=== PATIENT | female | born 1975 | race Caucasian/White ===

== ENCOUNTER 2019-05-15 13:02 | Emergency (ER) | payer BC ==
[2019-05-15 13:11] VITALS: BP 122/74
[2019-05-15] MEDS ORDERED: Sodium Chloride 0.9% 1,000 ML IV ONE (13:38)
[2019-05-15] MEDS ORDERED: Ondansetron 4 MG/2 ML SDV IVPUSH ONE (13:38)
[2019-05-15] MEDS ORDERED: Sodium Chloride 0.9% 10 ML Syringe FLUSH PRN ×2 (13:38→14:06)
--- NOTE | 2019-05-15 13:42 | EDM.PDOC ---
ED HPI GENERAL MEDICAL PROBLEM - General Chief Complaint: Gastrointestinal Problem Stated Complaint: CANT KEEP FOOD DOWN SINCE GASTRIC SLEEVE SURGERY Time Seen by Provider: 05/15/19 13:25 Source of Information: Reports: Patient History Limitations: Reports: No Limitations - History of Present Illness INITIAL COMMENTS - FREE TEXT/NARRATIVE: Patient is unfortunate 44-year-old morbidly obese female who presents emergency Department today with complaint of epigastric and pain and vomiting. Patient reports that she is status post a gastric sleeve by Dr. Valentin at [facility] in [place] on of last week. Patient reports she was sent home on Wednesday and since that time she's not been able to keep any food or fluid down since. She's been vomiting every time she attempts to eat or drink anything. She reports she's not had any fever she does have epigastric abdominal pain which is worse with deep inspiration or with eating or drinking improves with rest does not alleviate. She reports that she called and talked to the nurses at his office who put her on a different pain medication which she is unable to parts picker thus far Upper Abdomen Pain Score (Numeric/FACES): 6 - Related Data Allergies Allergy/AdvReac Type Severity Reaction Status Date / Time Sulfa (Sulfonamide Allergy Itching Verified 05/15/19 13:11 Antibiotics) Home Meds: Home Meds Acetaminophen with Codeine [Tylenol with Codeine #3 Tablet] 1 each PO Q4HR 05/15 [History] Cyanocobalamin (Vitamin B-12) [B-12] 1,000 mcg PO DAILY 05/15/19 [History] Dextroamphetamine/Amphetamine [Adderall] 30 mg PO BID 05/15/19 [History] Hydrocodone/Acetaminophen [Hydrocodon-Acetaminoph 7.5-325] 15 ml PO Q6HR [History] Multivitamin [Daily Multiple Vitamin] 1 each PO DAILY 05/15/19 [History] Ondansetron [Zofran ODT] 4 mg PO Q6H PRN 05/15/19 [History] Pantoprazole [ProTONIX] 40 mg PO DAILY 05/15/19 [History] Promethazine [Phenergan] 0.5 ml TOP ASDIRECTED 05/15/19 [History] SUMAtriptan [Imitrex] 100 mg PO Q2HR 05/15/19 [History] cephALEXin [Cephalexin] 10 ml PO QID 7 Days #280 ml 05/15/19 [Rx] Past Medical History HEENT History: Reports: Impaired Vision Cardiovascular History: Reports: None Respiratory History: Reports: None Genitourinary History: Reports: UTI, Recurrent BLADE BALANCER History: Reports: None Musculoskeletal History: Reports: None Neurological History: Reports: Headaches, Chronic Psychiatric History: Reports: None Endocrine/Metabolic History: Reports: Obesity/BMI 30+ Hematologic History: Reports: None Immunologic History: Reports: None Oncologic (Cancer) History: Reports: None Dermatologic History: Reports: Other (See Below) Other Dermatologic History: Cyst in Right Knee - Infectious Disease History Infectious Disease History: Reports: None - Past Surgical History GI Surgical History: Reports: Other (See Below) Other GI Surgeries/Procedures: Gastric Sleeve Surgery done on 05/11/19. Social & Family History - Tobacco Use Smoking Status *Q: Never Smoker - Caffeine Use Caffeine Use: Reports: None - Recreational Drug Use Recreational Drug Use: No ED ROS GENERAL - Review of Systems Review Of Systems: See Below Constitutional: Denies: Fever, Chills GI/Abdominal: Reports: Abdominal Pain, Nausea, Vomiting. Denies: Diarrhea, Decreased Appetite, Flatus, Hematemesis, Hematochezia ED EXAM, GI/ABD - Physical Exam Exam: See Below Exam Limited By: No Limitations General Appearance: Alert, WD/WN, Mild Distress, Obese Nose: Normal Inspection, Normal Mucosa, No Blood Throat/Mouth: Normal Inspection, Normal Lips, Normal Teeth, Normal Gums, Normal Oropharynx, Normal Voice, No Airway Compromise Neck: Normal Inspection, Supple, Non-Tender, Full Range of Motion Respiratory/Chest: No Respiratory Distress, Lungs Clear, Normal Breath Sounds, No Accessory Muscle Use, Chest Non-Tender Cardiovascular: Normal Peripheral Pulses, Regular Rate, Rhythm, No Edema, No Gallop, No JVD, No Murmur, No Rub GI/Abdominal Exam: Normal Bowel Sounds, Soft, Tender (Mild epigastric tenderness ), Other (Surgical incisions with good adhesions well approximated no dehiscence no erythema at the site) Extremities: Normal Inspection, Normal Range of Motion, Non-Tender, Normal Capillary Refill, No Pedal Edema Neurological: Alert Skin Exam: Warm, Dry, No Rash Course - Vital Signs Last Recorded V/S: Last Vital Signs Temp 97.5 F 05/15/19 13:07 Pulse 70 05/15/19 13:07 Resp 16 05/15/19 13:07 BP 122/74 05/15/19 13:07 Pulse Ox 94 L 05/15/19 13:07 - Orders/Labs/Meds Orders: Active Orders 24 hr Category Date Time Status CULTURE URINE [RM] Stat Lab 05/15/19 16:20 Received HYDROmorphone [Dilaudid] Med 05/15/19 17:11 Once 1 mg IVPUSH ONETIME ONE Sodium Chloride 0.9% [Saline Flush] Med 05/15/19 13:38 Active 10 ml FLUSH ASDIRECTED PRN Sodium Chloride 0.9% [Saline Flush] Med 05/15/19 14:06 Active 10 ml FLUSH ONETIME PRN cefTRIAXone [Rocephin] 1 gm Med 05/15/19 17:11 Ordered Sodium Chloride 0.9% [Normal Saline] 100 ml IV ONETIME Saline Lock Insert [OM.PC] Stat Oth 05/15/19 13:38 Ordered Medication Orders Ceftriaxone Sodium 1 gm/ (Sodium Chloride) 100 mls @ 200 mls/hr IV ONETIME ONE Stop: 05/15/19 17:40 Sodium Chloride (Saline Flush) 10 ml FLUSH ASDIRECTED PRN PRN Reason: Keep Vein Open Last Admin: 05/15/19 14:06 Dose: 10 ml Sodium Chloride (Saline Flush) 10 ml FLUSH ONETIME PRN PRN Reason: IV FLUSH Last Admin: 05/15/19 15:43 Dose: 10 ml Labs: Laboratory Tests 05/15/19 05/15/19 05/15/19 Range/Units 14:05 14:05 14:05 WBC 8.26 (3.98-10.04) K/mm3 RBC 4.45 (3.98-5.22) M/mm3 Hgb 11.1 L (11.2-15.7) gm/dl Hct 35.3 (34.1-44.9) % MCV 79.3 L (79.4-94.8) fl MCH 24.9 L (25.6-32.2) pg MCHC 31.4 L (32.2-35.5) g/dl RDW Std Deviation 42.1 (36.4-46.3) fL Plt Count 325 (182-369) K/mm3 MPV 10.1 (9.4-12.3) fl Neut % (Auto) 68.5 (34.0-71.1) % Lymph % (Auto) 16.8 L (19.3-51.7) % [place] % (Auto) 8.0 (4.7-12.5) % Eos % (Auto) 6.3 H (0.7-5.8) Baso % (Auto) 0.2 (0.1-1.2) % Neut # (Auto) 5.65 (1.56-6.13) K/mm3 Lymph # (Auto) 1.39 (1.18-3.74) K/mm3 [place] # (Auto) 0.66 H (0.24-0.36) K/mm3 Eos # (Auto) 0.52 H (0.04-0.36) K/mm3 Baso # (Auto) 0.02 (0.01-0.08) K/mm3 Sodium 141 (136-145) mEq/L Potassium 4.0 (3.5-5.1) mEq/L Chloride 103 (98-107) mEq/L Carbon Dioxide 27 (21-32) mEq/L Anion Gap 15.0 (5-15) BUN 11 (7-18) mg/dL Creatinine 0.8 (0.55-1.02) mg/dL Est Cr Clr Drug Dosing 88.18 mL/min Estimated GFR (MDRD) > 60 (>60) mL/min BUN/Creatinine Ratio 13.8 L (14-18) Glucose 105 (74-106) mg/dL Calcium 8.8 (8.5-10.1) mg/dL Total Bilirubin 0.5 (0.2-1.0) mg/dL AST 30 (15-37) U/L ALT 51 (14-59) U/L Alkaline Phosphatase 106 (46-116) U/L Total Protein 7.9 (6.4-8.2) g/dl Albumin 3.5 (3.4-5.0) g/dl Globulin 4.4 gm/dL Albumin/Globulin Ratio 0.8 L (1-2) Lipase 155 (73-393) U/L HCG, Qual Negative (NEGATIVE) Urine Color (Yellow) Urine Appearance (Clear) Urine pH (5.0-8.0) Ur Specific [place] (1.005-1.030) Urine Protein (Negative) Urine Glucose (UA) (Negative) Urine Ketones (Negative) Urine Occult Blood (Negative) Urine Nitrite (Negative) Urine Bilirubin (Negative) Urine Urobilinogen (0.2-1.0) Ur Leukocyte Esterase (Negative) Urine RBC (0-5) /hpf Urine WBC (0-5) /hpf Ur Squamous Epith Cells (0-5) /hpf Urine Bacteria (FEW) /hpf Urine Mucus (FEW) /hpf 05/15/19 Range/Units 16:20 WBC (3.98-10.04) K/mm3 RBC (3.98-5.22) M/mm3 Hgb (11.2-15.7) gm/dl Hct (34.1-44.9) % MCV (79.4-94.8) fl MCH (25.6-32.2) pg MCHC (32.2-35.5) g/dl RDW Std Deviation (36.4-46.3) fL Plt Count (182-369) K/mm3 MPV (9.4-12.3) fl Neut % (Auto) (34.0-71.1) % Lymph % (Auto) (19.3-51.7) % [place] % (Auto) (4.7-12.5) % Eos % (Auto) (0.7-5.8) Baso % (Auto) (0.1-1.2) % Neut # (Auto) (1.56-6.13) K/mm3 Lymph # (Auto) (1.18-3.74) K/mm3 [place] # (Auto) (0.24-0.36) K/mm3 Eos # (Auto) (0.04-0.36) K/mm3 Baso # (Auto) (0.01-0.08) K/mm3 Sodium (136-145) mEq/L Potassium (3.5-5.1) mEq/L Chloride (98-107) mEq/L Carbon Dioxide (21-32) mEq/L Anion Gap (5-15) BUN (7-18) mg/dL Creatinine (0.55-1.02) mg/dL Est Cr Clr Drug Dosing mL/min Estimated GFR (MDRD) (>60) mL/min BUN/Creatinine Ratio (14-18) Glucose (74-106) mg/dL Calcium (8.5-10.1) mg/dL Total Bilirubin (0.2-1.0) mg/dL AST (15-37) U/L ALT (14-59) U/L Alkaline Phosphatase (46-116) U/L Total Protein (6.4-8.2) g/dl Albumin (3.4-5.0) g/dl Globulin gm/dL Albumin/Globulin Ratio (1-2) Lipase (73-393) U/L HCG, Qual (NEGATIVE) Urine Color Light yellow (Yellow) Urine Appearance Cloudy H (Clear) Urine pH 7.0 (5.0-8.0) Ur Specific [place] 1.020 (1.005-1.030) Urine Protein 1+ H (Negative) Urine Glucose (UA) Negative (Negative) Urine Ketones 2+ H (Negative) Urine Occult Blood 1+ H (Negative) Urine Nitrite Negative (Negative) Urine Bilirubin Negative (Negative) Urine Urobilinogen 1.0 (0.2-1.0) Ur Leukocyte Esterase 3+ H (Negative) Urine RBC 5-10 H (0-5) /hpf Urine WBC >100 H (0-5) /hpf Ur Squamous Epith Cells 30-40 H (0-5) /hpf Urine Bacteria Moderate H (FEW) /hpf Urine Mucus Not seen (FEW) /hpf Meds: Medications Generic Name Dose Route Start Last Admin Trade Name Freq PRN Reason Stop Dose Admin Ceftriaxone Sodium 1 gm/ 100 mls @ 200 mls/hr 05/15/19 17:11 Sodium Chloride IV 05/15/19 17:40 ONETIME ONE Sodium Chloride 10 ml 05/15/19 13:38 05/15/19 14:06 Saline Flush FLUSH 10 ml ASDIRECTED PRN Administration Keep Vein Open Sodium Chloride 10 ml 05/15/19 14:06 05/15/19 15:43 Saline Flush FLUSH 10 ml ONETIME PRN Administration IV FLUSH Discontinued Medications Generic Name Dose Route Start Last Admin Trade Name Freq PRN Reason Stop Dose Admin Diatrizoate Meglum/Diatrizoate Sod 120 ml 05/15/19 14:06 05/15/19 15:42 Gastrografin 37% PO 05/15/19 14:07 120 ml ONETIME ONE Administration Sodium Chloride 1,000 mls @ 1,000 mls/hr 05/15/19 13:38 05/15/19 14:05 Normal Saline IV 05/15/19 14:37 1,000 mls/hr ONETIME ONE Administration Iopamidol 100 ml 05/15/19 14:06 05/15/19 15:42 Isovue-300 (61%) IVPUSH 05/15/19 14:07 100 ml ONETIME ONE Administration Ondansetron HCl 4 mg 05/15/19 13:38 05/15/19 14:05 Zofran IVPUSH 05/15/19 13:39 4 mg ONETIME ONE Administration - Re-Assessments/Exams Free Text/Narrative Re-Assessment/Exam: 05/15/19 16:28 CT abdomen and pelvis: Impression: #1 prior stomach surgery. Air within portions abdominal wall compatible with recent surgery. Inflammatory change around the stomach compatible recent surgery. #2 fluid which is most likely reactive within the pelvis. 3 Other findings believed to be incidental. Nothing acute is appreciated." Departure - Departure Time of Disposition: 17:12 Disposition: Home, Self-Care 01 Clinical Impression: UTI, Urinary tract infectious disease - Discharge Information Prescriptions: cephALEXin [Cephalexin] 10 ml PO QID 7 Days #280 ml Instructions: Urinary Tract Infection, Adult, [id number] Referrals: Priscila Casiano, [employer] QUAL[employer] TECHNICIAN [Primary Care Provider] - Forms: ED Department Discharge Sepsis Event Note - Evaluation Sepsis Screening Result: No Definite Risk - Focused Exam Vital Signs: Vital Signs Temp Pulse Resp BP Pulse Ox 05/15/19 13:07 97.5 F 70 16 122/74 94 L Date Exam was Performed: 05/15/19 Time Exam was Performed: 17:12 - My Orders Last 24 Hours: My Active Orders 05/15/19 13:38 Sodium Chloride 0.9% [Saline Flush] 10 ml FLUSH ASDIRECTED PRN Saline Lock Insert [OM.PC] Stat 05/15/19 14:06 Sodium Chloride 0.9% [Saline Flush] 10 ml FLUSH ONETIME PRN 05/15/19 16:20 CULTURE URINE [RM] Stat 05/15/19 17:11 HYDROmorphone [Dilaudid] 1 mg IVPUSH ONETIME ONE cefTRIAXone [Rocephin] 1 gm Sodium Chloride 0.9% [Normal Saline] 100 ml IV ONETIME - Assessment/Plan Last 24 Hours: My Active Orders 05/15/19 13:38 Sodium Chloride 0.9% [Saline Flush] 10 ml FLUSH ASDIRECTED PRN Saline Lock Insert [OM.PC] Stat 05/15/19 14:06 Sodium Chloride 0.9% [Saline Flush] 10 ml FLUSH ONETIME PRN 05/15/19 16:20 CULTURE URINE [RM] Stat 05/15/19 17:11 HYDROmorphone [Dilaudid] 1 mg IVPUSH ONETIME ONE cefTRIAXone [Rocephin] 1 gm Sodium Chloride 0.9% [Normal Saline] 100 ml IV ONETIME
[2019-05-15] MEDS ORDERED: Diatrizoate Meglumine/Diatrizoate Sodium 37% 120 ML Bottle PO ONE (14:06)
[2019-05-15] MEDS ORDERED: Iopamidol 612 MG/ML 100 ML Bottle IVPUSH ONE (14:06)
--- NOTE | 2019-05-15 16:17 | CT ---
CT abdomen and pelvis Technique: Multiple axial sections were obtained from above the dome of the diaphragm inferiorly through the pubic symphysis. Intravenous contrast was utilized. There is a small amount of contrast seen within the colon. No small bowel contrast is seen. Findings: Atelectasis is seen within the left lung base. Liver contains no focal abnormality. Small amount of fat is seen next to the ligamentum teres fissure which is a normal variant. Spleen appears within normal limits. Adrenal glands show no nodule. Pancreas is within normal limits. Surgical clips seen from prior cholecystectomy. Prior gastric surgery is noted. Inflammatory type change is seen around portions of the stomach most likely due to change from recent surgery. Air is noted within the subcutaneous fat most likely relating to prior surgery. Appendix is seen and is normal in size. No other mesenteric abnormalities are seen. Small amount of simple fluid is seen within the pelvis most likely reactive. Mild diverticulosis is seen within the descending and sigmoid colon without inflammatory change of diverticulitis. Aorta shows no aneurysm. No retroperitoneal adenopathy is seen. Kidneys show symmetric contrast enhancement. Small cysts are noted within both kidneys. No ureteral dilatation is seen. Bone window settings were reviewed which appear within normal limits for the patient's age. Impression: 1. Prior stomach surgery. Air within portions of the abdominal wall compatible with recent surgery. Inflammatory change around the stomach compatible with recent surgery. 2. Fluid which is most likely reactive within the pelvis. 3. Other findings believed to be incidental. Nothing acute is appreciated. Diagnostic code #2 This report was dictated in [place] Standard Time
[2019-05-15] MEDS ORDERED: cefTRIAXone 1 GM in Sodium Chloride 0.9% 100 ML IV ONE (17:11)
[2019-05-15] MEDS ORDERED: HYDROmorphone 1 MG/ML Syringe IVPUSH ONE (17:11)
[2019-05-15] MEDS ORDERED: Promethazine 25 MG in Sodium Chloride 0.9% 50 ML IV ONE (17:42)
[2019-05-15] MEDS ORDERED: Promethazine 25 MG/ML SDV IM ONE (17:52)
[2019-05-15 18:46] VITALS: PULSE 83
== END 2019-05-15 18:35 | disposition home or self-care (01) ==
LOC: JD.ED 13:02
DX: N39.0 Urinary tract infection, site not specified (principal); Z88.2 Allergy status to sulfonamides
CPT/HCPCS: 36415; 74177; 80053; 81001; 83690; 84703; 85025; 87086; 87088; 96361; 96365; 96372; 96375; 99284; J0696; J1170; J2405; J2550; J7030; J7050; Q9963; Q9967; 99283

== ENCOUNTER 2021-10-31 21:39 | Emergency (ER) | payer BC, MEDICAID ==
[2021-10-31 22:54] VITALS: BP 123/82; PULSE 76
[2021-10-31 23:38] LABS: ESTIMATED GFR > 60 mL/min (>60)
[2021-10-31] MEDS ORDERED: Apixaban 5 MG Tab PO ONE (23:59)
== END 2021-11-01 00:38 | disposition home or self-care (01) ==
LOC: JD.ED 21:39
DX: I82.512 Chronic embolism and thrombosis of left femoral vein (principal); E66.9 Obesity, unspecified; Z79.01 Long term (current) use of anticoagulants; Z88.2 Allergy status to sulfonamides; Z68.41 Body mass index [BMI] 40.0-44.9, adult
CPT/HCPCS: 36415; 80053; 85025; 85610; 93971; 99284; A9270

== ENCOUNTER 2022-05-08 12:29 | Emergency (ER) | payer MEDICAID ==
[2022-05-08 13:00] VITALS: BP 109/79; PULSE 112
[2022-05-08] MEDS ORDERED: Albuterol/Ipratropium 3.0-0.5 MG/3 ML Neb Soln NEB PRN (14:30)
[2022-05-08 14:53] LABS: CORONAVIRUS COVID-19 NAA NEGATIVE (NEGATIVE)
== END 2022-05-08 16:45 | disposition home or self-care (01) ==
LOC: JD.ED 12:29
DX: J10.1 Influenza due to other identified influenza virus with other respiratory manifestations (principal); E66.9 Obesity, unspecified; Z68.41 Body mass index [BMI] 40.0-44.9, adult; Z88.2 Allergy status to sulfonamides; Z79.899 Other long term (current) drug therapy; Z20.822 Contact with and (suspected) exposure to COVID-19
CPT/HCPCS: 0240U; 71045; 94640; 99284; J7620-GY

== ENCOUNTER 2022-05-26 22:41 | Emergency (ER) | payer MEDICAID ==
[2022-05-26] MEDS ORDERED: HYDROmorphone 1 MG/ML Syringe IM ONE (23:16)
[2022-05-27] MEDS ORDERED: Sodium Chloride 0.9% 10 ML Syringe FLUSH PRN (00:06)
[2022-05-27] MEDS ORDERED: Heparin Sodium 5,000 Units/ML Vial IVPUSH ONE (00:06)
[2022-05-27] MEDS: Heparin Sodium/D5W 25,000 UNITS/500 ML BAG IV SCH ×2 (00:27→12:57)
[2022-05-27] MEDS ORDERED: Ondansetron 4 MG/2 ML SDV IVPUSH PRN (00:35)
[2022-05-27 01:18] LABS: CORONAVIRUS COVID-19 NAA NEGATIVE (NEGATIVE)
[2022-05-27] MEDS: fentaNYL 100 MCG/2 ML SDV IVPUSH PRN ×2 (03:42→11:30)
[2022-05-27] MEDS: HYDROmorphone 0.5 MG/0.5 ML Syringe IVPUSH PRN ×2 (07:52→12:46)
[2022-05-27] MEDS ORDERED: Metoclopramide 10 MG/2 ML SDV IVPUSH ONE (08:00)
[2022-05-27] MEDS ORDERED: Ondansetron 4 MG/2 ML SDV IVPUSH ONE (11:28)
[2022-05-27 18:20] VITALS: BP 106/79; PULSE 84
== END 2022-05-27 12:45 ==
LOC: JD.ED 22:41
DX: I82.402 Acute embolism and thrombosis of unspecified deep veins of left lower extremity (principal); K21.9 Gastro-esophageal reflux disease without esophagitis; E66.9 Obesity, unspecified; Z68.41 Body mass index [BMI] 40.0-44.9, adult; Z88.2 Allergy status to sulfonamides; Z20.822 Contact with and (suspected) exposure to COVID-19
CPT/HCPCS: 0240U; 36415; 80053; 85025; 85730; 93925; 96365; 96366; 96375; 96376; 99285; J1170; J1644; J2405; J2765; J3010; J3490